=== PATIENT | female | born 1965 | race African-American/Black ===

== ENCOUNTER 2024-06-28 20:38 | Inpatient (IN) | payer SELFPAY ==
[~2024-06-28] VITALS: Ht 167.6 cm; Wt 64.4 kg
[2024-06-28] MEDS ORDERED: IPRATROPIUM BROMIDE (0.02%) 0.5MG/2.5ML NEB HHN STA (20:47)
[2024-06-28 21:00] VITALS: O2SAT 96
[2024-06-28] MEDS: MAGNESIUM 2 G PREMIX 50 ML IV ONE (21:00)
[2024-06-28] MEDS: MIDAZOLAM HCL 2 MG/2 ML VIAL IM ONE (21:00)
[2024-06-28] MEDS: METHYLPREDNISOLONE SOD SUCC 125MG/2ML (ACT-O-VIAL) IV STA (21:00)
[2024-06-28] MEDS ORDERED: ALBUTEROL (0.083%) 2.5MG/3ML NEB HHN SCH (21:00)
[2024-06-28] MEDS: ASPIRIN 81MG TABLET PO ONE (21:00)
[2024-06-28 21:49] LABS: HEMATOCRIT. 28.8 % (36.0-48.0); HEMOGLOBIN. 8.9 g/dL (12.0-16.0); MEAN CORPUSCULAR HEMOGLOBIN 28.2 pg (28.0-32.0); MEAN CORPUSCULAR HGB CONC 30.8 g/dL (31.0-37.0); MEAN CORPUSCULAR VOLUME 91.5 fL (81.0-99.0); MEAN PLATELET VOLUME 9.2 fl (7.4-10.4); PLATELET 698 x1000/uL (130-400); RED BLOOD CELL COUNT 3.15 mill/uL (4.2-5.4); RED CELL DISTRIBUTION WIDTH 14.7 % (11.6-14.6); WHITE BLOOD COUNT 15.9 x1000/uL (4.5-11.0)
[2024-06-28 21:50] LABS: DIFFERENTIAL COMMENT 1
[2024-06-28 21:58] LABS: CHLORIDE 98 mEq/L (98-107); POTASSIUM 5.8 mEq/L (3.5-5.1); SODIUM 132 mEq/L (136-145)
[2024-06-28 21:59] LABS: CARBON DIOXIDE 18 mEq/L (21-32)
[2024-06-28 22:00] LABS: CALCIUM 8.9 mg/dL (8.7-10.4)
[2024-06-28 22:05] LABS: CREATININE 0.8 mg/dL (0.6-1.0); GLUCOSE 156 mg/dL (70-105); UREA NITROGEN BLOOD 17 mg/dL (9-23)
[2024-06-28 22:19] LABS: PLATELET ESTIMATE INCREASED
[2024-06-28 22:24] LABS: TROPONIN I HIGH SENSITIVITY 294 ng/L (3.0-34)
[2024-06-29] VITALS (20 sets, daily range): BP systolic 35–105; BP diastolic 12–87; PULSE 0–118; RESP 17–42; TEMP 33.8916–33.916; O2SAT 88–100
[2024-06-29 00:37] LABS: TROPONIN I HIGH SENSITIVITY 490 ng/L (3.0-34)
[2024-06-29] MEDS ORDERED: PROPOFOL 10MG/ML 100ML 100 ML IV SCH ×2 (05:00→05:15)
[2024-06-29] MEDS ORDERED: FENTANYL 2500MCG/250ML PMX 250 ML IV SCH (05:00)
[2024-06-29] MEDS ORDERED: SODIUM CHLORIDE 10% FOR INH 15ML NEB INH SCH (05:15)
[2024-06-29] MEDS ORDERED: FENTANYL CITRATE 1,000 MCG in SODIUM CHLORIDE 0.9% 80 ML IV PRN (05:15)
[2024-06-29] MEDS ORDERED: SODIUM BICARBONATE 8.4% 50MEQ/50ML SYR IV NR (05:30)
[2024-06-29] MEDS ORDERED: AZITHROMYCIN 500MG/250ML 250 ML IV SCH ×2 (06:00→13:00)
[2024-06-29] MEDS: NOREPINEPHRINE 8MG/250ML PMX 250 ML IV PRN (06:03)
[2024-06-29 06:29] LABS: BG BASE EXCESS -8.2 mmol/L (-2.0-3.0); BG CARBOXYHEMOGLOBIN 0.6 % (0.5-1.5); BG DEOXYHEMOGLOBIN 8.6 % (0.0-5.0); BG FRACTION INSPIRED OXYGEN 100; BG HCO3 ACT 19.5 mmol/L (21.0-28.0); BG METHEMOGLOBIN 0.3 % (0.5-1.5); BG OXYGEN SATURATION 91.3 % (94.0-98.0); BG OXYHEMOGLOBIN 90.5 % (94.0-98.0); BG PCO2 51.7 mmHg (32.0-45.0); BG PH 7.194 (7.350-7.450); BG PO2 77.9 mmHg (83.0-108.0); BG SAMPLE SITE RIGHT FEMORAL; BG TOTAL HEMOGLOBIN 7.7 g/dL (12.0-16.0); BG VENT MODE VENT - APRV
[2024-06-29] MEDS: METHYLPREDNISOLONE SOD SUCC 125MG/2ML (ACT-O-VIAL) IV NR (07:48)
[2024-06-29] MEDS: IPRATROPIUM/ALBUTEROL 0.5-3(2.5)MG/3ML NEB HHN SCH (08:20)
[2024-06-29] MEDS: BUDESONIDE 0.5MG/2ML NEB HHN SCH (08:21)
[2024-06-29] MEDS: DEXTROSE 50% WATER 50ML SYRINGE IV NR (10:35)
[2024-06-29] MEDS: INSULIN REGULAR (HUMULIN R) 1000UNITS/10ML VIAL IV NR (10:36)
[2024-06-29] MEDS ORDERED: PHENYLEPHRINE 50MG/250ML PMX 250 ML IV PRN (11:00)
[2024-06-29] MEDS ORDERED: EPINEPHRINE 10 MG in DEXT 5% WATER 240 ML IV PRN (11:00)
[2024-06-29] MEDS: SODIUM BICARBONATE 8.4% 50MEQ/50ML SYR IV SCH (11:11)
[2024-06-29] MEDS: METHYLPREDNISOLONE SOD SUCC 125MG/2ML (ACT-O-VIAL) IV SCH (11:12)
[2024-06-29] MEDS: CALCIUM GLUCONATE 1GM PREMIX 50 ML IV NR (11:12)
[2024-06-29] MEDS: PIPERACILLIN/TAZO 3.375G/50ML 50 ML IV SCH (11:13)
[2024-06-29] MEDS: VANCOMYCIN 1.5GM PMX (XELLIA) 300 ML IV SCH (11:13)
[2024-06-29] MEDS: PHENYLEPHRINE 100 MG in DEXT 5% WATER 240 ML IV PRN (11:34)
[2024-06-29] MEDS: VASOPRESSIN 20 UNIT in SODIUM CHLORIDE 0.9% 99 ML IV PRN (11:34)
[2024-06-29] MEDS: EPINEPHRINE 10 MG in SODIUM CHLORIDE 0.9% 240 ML IV PRN (11:35)
[2024-06-29] MEDS: NOREPINEPHRINE 32 MG in DEXT 5% WATER 218 ML IV PRN (11:36)
[2024-06-29] MEDS ORDERED: DOCUSATE SODIUM 100MG CAPSULE PO PRN (12:30)
[2024-06-29] MEDS ORDERED: IPRATROPIUM/ALBUTEROL 0.5-3(2.5)MG/3ML NEB HHN PRN (12:30)
[2024-06-29] MEDS ORDERED: ACETAMINOPHEN 650MG/20.3ML UDC GT PRN ×2 (12:30)
[2024-06-29] MEDS ORDERED: ONDANSETRON HCL 4MG/2ML INJ IV PRN (12:30)
[2024-06-29] MEDS ORDERED: ACETAMINOPHEN 325MG TABLET PO PRN ×2 (12:30)
[2024-06-29] MEDS ORDERED: CLONIDINE 0.1MG TABLET PO PRN (12:30)
[2024-06-29 12:50] LABS: BG BASE EXCESS 3.2 mmol/L (-2.0-3.0); BG CARBOXYHEMOGLOBIN 0.7 % (0.5-1.5); BG DEOXYHEMOGLOBIN 21.9 % (0.0-5.0); BG FRACTION INSPIRED OXYGEN 100; BG HCO3 ACT 32.1 mmol/L (21.0-28.0); BG METHEMOGLOBIN 0.3 % (0.5-1.5); BG OXYGEN SATURATION 77.9 % (94.0-98.0); BG OXYHEMOGLOBIN 77.1 % (94.0-98.0); BG PCO2 78.3 mmHg (32.0-45.0); BG PH 7.231 (7.350-7.450); BG PO2 51.9 mmHg (83.0-108.0); BG SAMPLE SITE RIGHT RADIAL; BG TOTAL HEMOGLOBIN 9.8 g/dL (12.0-16.0); BG VENT MODE VENT - AC
[2024-06-29] MEDS ORDERED: PANTOPRAZOLE SODIUM 40 MG/VIAL IV SCH (13:30)
[2024-06-29] MEDS: SODIUM BICARBONATE 150 MEQ in SODIUM CHLORIDE 0.45% 850 ML IV SCH (13:54)
[2024-06-29] MEDS ORDERED: IOHEXOL-350 100 ML BOTTLE ONE (14:48)
[2024-06-29] MEDS ORDERED: DOXYCYCLINE 100MG/100ML 100 ML IV SCH (16:00)
[2024-06-29 16:08] LABS: CLARITY URINE CLEAR (CLEAR); COLOR URINE DARK YELLOW (YELLOW); GLUCOSE URINE 1+ (NEGATIVE); KETONES URINE NEGATIVE (NEGATIVE); LEUKOCYTE ESTERASE URINE TRACE (NEGATIVE); NITRITE URINE NEGATIVE (NEGATIVE); OCCULT BLOOD URINE 2+ (NEGATIVE); PROTEIN URINE 1+ (NEGATIVE); SPECIFIC GRAVITY URINE 1.042 (1.005-1.030)
[2024-06-29 16:28] LABS: *AMPHETAMINES SCREEN URINE NEGATIVE (NEGATIVE)
[2024-06-29 16:29] LABS: *BARBITURATES SCREEN URINE NEGATIVE (NEGATIVE); *BENZODIAZEPINES SCREEN URINE PRESUMPTIVE POSITIVE (NEGATIVE); *COCAINE SCREEN URINE NEGATIVE (NEGATIVE); SQUAMOUS EPITHELIAL CELL URINE FEW /lpf (RARE/1+); WBC URINE 0-2 /hpf (0-2); YEAST URINE NONE SEEN
[2024-06-29 16:30] LABS: BACTERIA URINE 1+; CANNABINOID URINE SCREEN PRESUMPTIVE POSITIVE (NEGATIVE); ECSTASY MDMA SCREEN URINE NEGATIVE (NEGATIVE); METHADONE URINE SCREEN NEGATIVE (NEGATIVE); OPIATES URINE SCREEN PRESUMPTIVE POSITIVE (NEGATIVE); PHENCYCLIDINE URINE SCREEN NEGATIVE (NEGATIVE)
[2024-06-29] MEDS ORDERED: VANCOMYCIN 1GM/200ML PMX (BAXTER) IV SCH (21:00)
== END 2024-06-29 18:00 | DRG 720 ==
LOC: ER 20:38 → MICUSO 23:14 → EDBEDREQ 23:19 → EDBEDREQTM 23:19 → EDBEDREQSVC 06-29 07:31 → MICUSO 06-29 09:14
PROVIDERS: ADMIT Internal Medicine; ATTEND Internal Medicine
PROC: 5A09357 Assistance with Respiratory Ventilation, Less than 24 Consecutive Hours, Continuous Positive Airway Pressure (ICD-10-PCS; 2024-06-28)
PROC: 5A1935Z Respiratory Ventilation, Less than 24 Consecutive Hours (ICD-10-PCS; principal; 2024-06-29)
PROC: 0BH17EZ Insertion of Endotracheal Airway into Trachea, Via Natural or Artificial Opening (ICD-10-PCS; 2024-06-29)
PROC: 5A12012 Performance of Cardiac Output, Single, Manual (ICD-10-PCS; 2024-06-29)
DX: A41.9 Sepsis, unspecified organism (principal); J80 Acute respiratory distress syndrome; R65.21 Severe sepsis with septic shock; G93.40 Encephalopathy, unspecified; J18.9 Pneumonia, unspecified organism; E87.4 Mixed disorder of acid-base balance; D64.9 Anemia, unspecified; D75.839 Thrombocytosis, unspecified; E87.5 Hyperkalemia; Z85.118 Personal history of other malignant neoplasm of bronchus and lung; Z87.891 Personal history of nicotine dependence
CPT/HCPCS: 36415; 36600; 71045; 71275; 80048; 80305; 81003; 82375; 82805; 82962; 83880; 84484; 85025; 87070; 92950; 93005; 94002; 94640; 99291; J0456; J0610; J1815; J2250; J2470; J2543; J2704; J2919; J3370; J3475; J3490; J7050; J7060; J7131; J7626; Q9967